=== PATIENT | female | born 1950 | race Caucasian/White ===

== ENCOUNTER 2022-03-01 12:01 | Inpatient (IN) | payer MEDICARE, OTHER ==
[~2022-03-01] VITALS: Ht 165.1 cm; Wt 65.0 kg
[2022-03-01] MEDS ORDERED: XANAX0.5 MG PO (17:01)
[2022-03-01] MEDS ORDERED: GABAPENTIN600 MG PO (17:03)
[2022-03-01] MEDS ORDERED: HYDRALAZINE HCL50 MG PO (17:04)
[2022-03-01] MEDS ORDERED: PROVENTIL HFA6.7 GM INH (17:06)
[2022-03-01] MEDS ORDERED: FUROSEMIDE20 MG PO (17:07)
[2022-03-01] MEDS ORDERED: LORATADINE10 MG PO (17:08)
[2022-03-01] MEDS ORDERED: HYDROCHLOROTH12.5 MG PO (17:08)
[2022-03-01] MEDS ORDERED: VITAMIN D21250 MCG PO (17:09)
[2022-03-01 18:17] LABS: HEMOGLOBIN 11.8 gm/dl (12.3-15.3); RED BLOOD COUNT 4.48 M/UL (4.00-5.10); WHITE BLOOD COUNT 12.7 K/UL (4.5-11.0)
[2022-03-01 18:38] LABS: BUN/CREATININE RATIO 18 (0-10)
[2022-03-02 02:06] LABS: WHITE BLOOD COUNT 9.8 K/UL (4.5-11.0)
[2022-03-02 02:11] LABS: HEMOGLOBIN 9.4 gm/dl (12.3-15.3); RED BLOOD COUNT 3.6 M/UL (4.00-5.10)
[2022-03-02 02:24] LABS: BUN/CREATININE RATIO 19 (0-10)
[2022-03-03 01:18] LABS: RED BLOOD COUNT 3.77 M/UL (4.00-5.10); WHITE BLOOD COUNT 8.5 K/UL (4.5-11.0)
[2022-03-03] MEDS ORDERED: FUROSEMIDE20 MG PO (11:01)
[2022-03-03] MEDS ORDERED: ASPIRIN EC81 MG PO (11:01)
[2022-03-03] MEDS ORDERED: CLOPIDOGREL75 MG PO (11:01)
[2022-03-03] MEDS ORDERED: CARVEDILOL12.5 MG PO (11:01)
[2022-03-03] MEDS ORDERED: JARDIANCE10 MG PO (11:01)
[2022-03-03] MEDS ORDERED: ATORVASTATIN CA20 MG PO (11:01)
[2022-03-03] MEDS ORDERED: LISINOPRIL5 MG PO (11:01)
--- NOTE | 2022-03-03 18:16 | NUR ---
A ZIP LOCK BAG WAS FOUND WHILE HOUSE KEEPING WAS CLEANING HER ROOM DIRECTLY AFTER THE PATIENT HAD LEFT. WE ATTEMPTED TO CALL THE PERSON TO NOTIFY THAT IS DOCUMENTED UNDER THE PATIENTS CHART. SHE SAID TO CALL [facility] DUE TO THE FACT THAT HE LIVED IN [place] AND HE WOULD BE ABLE TO COME AND GET THE MEDICATION AND BELONGINGS FASTER. I THEN CALLED HIM AND HE SAID THAT HE WOULD BE ABLE TO COME AND GET THE BELONGINGS SHORTLY. THE BLONGING WERE PLACED IN A MAURICIO BAG. THERE WERE TWO BOTTLES OF XANAX. IN THE FIRST BOTTLE OF XANAX HAD 4 HALF PILLS IN THE BOTTLE. AND THE SECOND BOTTLE HAD THREE HALF PILLS OF XANAX IN THEM. THESE WERE BOTH COUNTED AND VERIFIEFIED BY BOTH AND BRINDA JADE. ALSO IN THE BAD THERE IS AN ALBUTEROL INHALER AND A NECKLACE THAT SHE HAD LEFT IN A ZIPLOCK BAGGIE.
== END 2022-03-03 12:25 | disposition home or self-care (01) | DRG 246 ==
LOC: PROG CARE 14:15
PROVIDERS: Physician Assistant Medical; ADMIT Internal Medicine
PROC: 4A023N7 Measurement of Cardiac Sampling and Pressure, Left Heart, Percutaneous Approach (ICD-10-PCS; principal; 2022-03-02)
PROC: 027034Z Dilation of Coronary Artery, One Artery with Drug-eluting Intraluminal Device, Percutaneous Approach (ICD-10-PCS; 2022-03-02)
PROC: B2111ZZ Fluoroscopy of Multiple Coronary Arteries using Low Osmolar Contrast (ICD-10-PCS; 2022-03-02)
PROC: B24BZZZ Ultrasonography of Heart with Aorta (ICD-10-PCS; 2022-03-02)
DX: I21.4 Non-ST elevation (NSTEMI) myocardial infarction (principal); I50.23 Acute on chronic systolic (congestive) heart failure; I25.10 Atherosclerotic heart disease of native coronary artery without angina pectoris; I11.0 Hypertensive heart disease with heart failure; E78.5 Hyperlipidemia, unspecified; J44.9 Chronic obstructive pulmonary disease, unspecified; D64.9 Anemia, unspecified; F41.9 Anxiety disorder, unspecified; E87.6 Hypokalemia; Z20.822 Contact with and (suspected) exposure to COVID-19; Z95.5 Presence of coronary angioplasty implant and graft; Z90.49 Acquired absence of other specified parts of digestive tract; Z88.8 Allergy status to other drugs, medicaments and biological substances; Z82.49 Family history of ischemic heart disease and other diseases of the circulatory system; Z83.3 Family history of diabetes mellitus; Z87.891 Personal history of nicotine dependence; Z79.82 Long term (current) use of aspirin
CPT/HCPCS: ECHO; 36415; 36600; 71045; 80048; 80053; 80061; 80307; 81001; 82550; 82553; 82803; 82962; 83036; 83735; 83880; 84439; 84443; 84484; 85018; 85025; 85347; 85730; 93005; 93306; 99152; 99153; C1725; C1769; C1874; C1887; C1894; C9113; J0360; J0461; J1644; J1650; J1940; J2250; J3010; J3475; J7040; Q9965